=== PATIENT | male | born 1945 | race Caucasian/White ===

== ENCOUNTER → 2019-02-23 09:03 | Outpatient (CLI) | payer OTHER, SELFPAY ==
--- NOTE | 2019-02-23 | DI.NM.S_ITS ---
PROCEDURE: NM OG PERF SPECT REST & STR Rest and exercise myocardial perfusion SPECT with gated imaging and ejection fraction RADIOPHARMACEUTICAL: 25.2 mCi Tc-99m sestamibi IV at rest and 25.7 mCi Tc-99m sestamibi IV at peak exercise. A two day-protocol was performed. INDICATIONS: preprocedural cardiovascular examination TECHNIQUE: Radiopharmaceutical was injected at peak stress test, and also at rest. SPECT images were obtained. SPECT myocardial perfusion images were displayed in short axis, horizontal long axis, and vertical long axis views. Gated images were reviewed using [employer] software. COMPARISON: None. CARDIAC STRESS: A standard [place] treadmill exercise tolerance test was performed by the patient under the supervision of an attending staff. The patient exercised for 6 minutes and 1 seconds; functional aerobic impairment (MALA) is +10% on sedentary scale. Hemodynamic data: There is normal blood pressure and heart rate response to exercise stress. Patient achieved 97% of maximum predicted heart rate at peak exercise. Symptoms: Patient had mild chest pain with exercise, which is suggestive of angina. EKG: With exercise, there were more than 2mm downsloping ST depressions in the V3-V4 leads. FINDINGS: Raw data: There is good myocardial labeling by radiotracer. No significant motion artifacts. Auat-px-qknpj ratio is 0.24 (normal is less than 0.38 for sestamibi tracer, and less than 0.50 for thallium tracer). Left ventricle function: Gated images demonstrate normal left ventricle wall thickening. No segmental wall motion abnormality. No transient ischemic dilation; TID is 0.93 (normal less than 1.3). The left ventricle resting end-diastolic volume is 114 mL. Left ventricle stress ejection fraction is 69%; normal values are above 45%. Myocardial perfusion: There is moderately intense fixed defect in the inferior wall that resolves with prone imaging suggesting diaphragmatic attenuation. No definite ischemia or infarction seen. IMPRESSION: Discordant study. Recommend cardiology consult for clinical assessment and to consider coronary angiogrpahy. 1) Probably normal perfusion images. There is moderately intense fixed defect in the inferior wall that resolves with prone imaging suggesting diaphragmatic attenuation. Given symptoms suggestive of angina along with ECG changes suggestive of ischemia, the perfusion images may be normal due to balanced ischemia. Correlate clinically. 2) Normal left ventricular size, wall motion, and systolic function (EF post stress 69%). 3) ECG changes suggestive of ischemia. With exercise, there were more than 2mm downsloping ST depressions in the V3-V4 leads. 4) Patient had mild chest pain with exercise, which is suggestive of angina. 5) Reduced exercise tolerance (7.0 METs, MALA +10% on sedentary scale). Target heart rate achieved. 6) Compared to the nuc stress done 01/20/2017, ECG changes and angina are present on today's study. Recommend cardiology consult for clinical assessment and to consider coronary angiography. Dictated by: April Pedroza MD on 02/24/2019 at 15:43 Approved by: April Pedroza MD on 02/24/2019 at 15:49
--- NOTE | 2019-02-24 12:25 | P.PCN_ITS ---
Cardiac Stress Test Report Referral & Results Date Patient Seen: 02/24/19 Time Patient Seen: 12:00 Requesting provider: Stephen Sequeira Indication: Presurgical evaluation Rest ECG: NSR Procedure Note: Today following both written and verbal informed consent the patient was exercised according to a standard [place] protocol patient went for a total of 6 minutes achieving a maximum heart rate of 141 maximum systolic blood pressure of 138. This is approximately 7 METs. Exercise was terminated at this point because of fatigue. Patient was also given Cardiolite through a previously started Hep-Lock IV by the nuclear medical technologist approximately 1 minute prior to the cessation of exercise. Mild retrosternal chest pain. Rapid onset shortness of breath. Appropriate heart rate/BP response. No change in rhythm. Significant ST deviations in precordial leads near the end of exercise. MALA +10% on sedentary scale. Impression: Intermediate probability for ischemia. Will await perfusion imaging. Please note: Actual ECG tracings can be found in the PACS system.
== END ==
PROVIDERS: PCP Internal Medicine; Visit Provider Student in an Organized Health Care Education/Training Program
DX: Z01.810 Encounter for preprocedural cardiovascular examination (principal); I20.8 Other forms of angina pectoris
CPT/HCPCS: 78452; 93016; 93017; 93018; A9502